=== PATIENT | female | born 1970 | race Caucasian/White ===

== ENCOUNTER 2021-06-20 11:18 | Outpatient (CLI) | payer OTHER, SELFPAY ==
--- NOTE | 2021-06-20 11:30 | XR_ITS ---
WS: [id number] TECHNIQUE: 2 views of the right hand CLINICAL INFORMATION: M25.50 - Pain in unspecified joint COMPARISON: None. FINDINGS: Normal metacarpals. Normal MCP joint. Metacarpal heads are normal in appearance. Normal PIP and DIP j oints. No evidence of acute fracture or dislocation. Tiny chronic ulna styloid avulsion. No periartic ular erosions. Radiocarpal joint: Normal. Carpal bones: Normal. XR/XR hand RT 2V [id number] IMPRESSION: 1. Tiny chronic ulna styloid avulsion. 2. No periarticular erosions.
--- NOTE | 2021-06-20 11:30 | XR_ITS ---
WS: [id number] LUMBAR SPINE TECHNIQUE: 3 views of the lumbar spine CLINICAL INFORMATION: M25.50 - Pain in unspecified joint COMPARISON: None. FINDINGS: Five hjy-itd-wdkjjqo lumbar vertebral bodies. Disc space heights are well preserved. No compression f ractures. No visualized pars defects. No spondylolisthesis. Mild facet arthropathy L5-S1. Trace anter olisthesis L4 on L5. Normal visualized soft tissues. Partially visualized bowel gas pattern is normal. Prior tubal ligati on. XR/XR lumbar spine 2-3V* [id number] IMPRESSION: 1. Mild facet arthropathy L5-S1. 2. Disc space heights and vertebral body heights are well preserved. No acute compression fractures. No significant disc space narrowing. 3. Trace anterolisthesis L4 on L5.
--- NOTE | 2021-06-20 11:30 | XR_ITS ---
WS: [id number] SI JOINTS TECHNIQUE: 3 views of the sacroiliac joints CLINICAL INFORMATION: M25.50 - Pain in unspecified joint COMPARISON: None. FINDINGS: Evidence of prior tubal ligation. Normal sacroiliac joints with minimal degenerative change. No peria rticular erosions. Normal iliac wings. Normal lower lumbar spine. XR/XR sacroiliac jts 3V [id number] IMPRESSION: 1. Mild degenerative arthritis sacroiliac joints. No periarticular erosions.
--- NOTE | 2021-06-20 11:30 | XR_ITS ---
WS: [id number] TECHNIQUE: 2 views of the left hand CLINICAL INFORMATION: M25.50 - Pain in unspecified joint COMPARISON: None. FINDINGS: Normal metacarpals. Normal MCP joint. Metacarpal heads are normal in appearance. Normal PIP and DIP j oints. No evidence of acute fracture or dislocation. No periarticular erosions. Radiocarpal joint: Normal. Carpal bones: Normal. XR/XR hand LT 2V [id number] IMPRESSION: Normal left hand.
[2021-06-20 13:04] LABS: Creatine Phosphokinase 40 U/L (26-192)
[2021-06-20 13:38] LABS: Hepatitis B Core AB, Total Non-Reactive (Nonreactive); Hepatitis B Surface Antigen Non-Reactive (Nonreactive); Hepatitis C Virus Antibody Non-Reactive (Nonreactive)
[2021-06-25 12:08] LABS: COMPLEMENT COMPONENT C3C 158 mg/dL (83-193); COMPLEMENT COMPONENT C4C 30 mg/dL (15-57)
[2021-06-25 14:07] LABS: COMPLEMENT, TOTAL (CH50) >60 U/mL (31-60)
[2021-06-25 15:07] LABS: THYROID PEROXIDASE ANTIBODIES <1 IU/mL (<9)
[2021-06-26 15:33] LABS: ANA SCREEN, IFA NEGATIVE (NEGATIVE); CENTROMERE B ANTIBODY <1.0 NEG AI (<1.0 NEG); JO-1 ANTIBODY <1.0 NEG AI (<1.0 NEG); RNP ANTIBODY <1.0 NEG AI (<1.0 NEG); SCL-70 ANTIBODY <1.0 NEG AI (<1.0 NEG); SJOGREN'S ANTIBODY (SS-A) <1.0 NEG AI (<1.0 NEG); SM ANTIBODY <1.0 NEG AI (<1.0 NEG); SS-B <1.0 NEG AI (<1.0 NEG)
== END 2021-06-20 11:19 | disposition home or self-care (01) ==
LOC: RAD 11:27
PROVIDERS: PCP Family Medicine; Visit Provider Internal Medicine
DX: M17.10 Unilateral primary osteoarthritis, unspecified knee (principal); M25.50 Pain in unspecified joint; Z11.59 Encounter for screening for other viral diseases
CPT/HCPCS: 36415; 72100; 72202; 73120; 82550; 83516; 86160; 86162; 86235; 86255; 86376; 86704; 86803; 87340

== ENCOUNTER 2021-08-08 06:00 | Outpatient (RCR) | payer OTHER, SELFPAY | END 2021-09-06 23:59 | disposition home or self-care (01) | LOC: SPT 06:00 | PROVIDERS: PCP Family Medicine; Referring Provider Anesthesiology Pain Medicine; Visit Provider Anesthesiology Pain Medicine | DX: M54.50 Low back pain, unspecified (principal); G89.29 Other chronic pain | CPT/HCPCS: 97110; 97162 ==

== ENCOUNTER 2021-09-07 06:00 | Outpatient (RCR) | payer OTHER, SELFPAY | END 2021-10-07 23:59 | disposition home or self-care (01) | LOC: SPT 06:00 | PROVIDERS: PCP Family Medicine; Referring Provider Anesthesiology Pain Medicine; Visit Provider Anesthesiology Pain Medicine | DX: G89.29 Other chronic pain (principal); M54.50 Low back pain, unspecified | CPT/HCPCS: 97110 ==

== ENCOUNTER 2024-01-11 14:44 | Outpatient (CLI) | payer BC, SELFPAY ==
--- NOTE | 2024-01-11 14:53 | XR_ITS ---
WS: [id number] Examination: XR lumbar spine 2-3V* [id number] Reason for Exam: LUMBAR PAIN LUMBAR RADICULOPATHY Date: 01/11/2024 Comparison: 06/20/2021 Findings: The pedicles and the bone density are maintained. There is no anterior wedging or compression. There is no subluxation There is minimal L4-5 anterolisthesis again noted. The disc space heights are generally maintained There is mild spondylosis with anterior lipping. There is mild facet hypertrophy. Essure devices are noted XR/XR lumbar spine 2-3V* [id number] Impression: There is no wedging or compression. There is mild anterolisthesis again noted a t L4-5. Mild degenerative changes are present.
== END 2024-01-11 14:45 | disposition home or self-care (01) ==
LOC: RAD 14:48
PROVIDERS: PCP Family Medicine; Visit Provider Nurse Practitioner Family
DX: M54.16 Radiculopathy, lumbar region (principal); M54.50 Low back pain, unspecified
CPT/HCPCS: 72100